=== PATIENT | male | born 1955 | race African-American/Black ===

== ENCOUNTER 2019-10-26 20:22 | Inpatient (IN) ==
[2019-10-26 20:50] LABS: Basophils % 0.4 % (0.0-0.8); Eosinophils # 0.1 10*3/uL (0.0-0.87); Hematocrit 36.6 VOL% (42.0-52.0); Hemoglobin 11.9 GM/DL (14.0-18.0); Immature Granulocytes % 0.9 %; Immature Granulocytes Absolute 0.09 #; Lymphocytes % 19.5 % (21.2-54.2); Mean Corpuscular HGB Conc 32.5 GM/DL (32-36); Mean Corpuscular Volume 98.4 FL (87-102); Mean Platelet Volume 9.6 FL (9.6-12.0); Monocytes % 8.1 % (1.7-12.7); NRBC # 0.03 10*3/uL; Neutrophils % 70.1 % (38.7-73.9); Platelet Count 303 T/CUMM (130-400); Red Blood Count 3.72 MC/CUMM (3.8-5.5); Red Cell Distribution Width 13.1 % (9.3-17.3); White Blood Count 10.3 T/CUMM (4-12)
[2019-10-26 21:10] LABS: Alanine Aminotransferase < 9 U/L (16-61); Albumin 2.9 G/DL (3.4-5.0); Alkaline Phosphatase 85 U/L (45-117); Aspartate Amino Transferase 21 U/L (0-37); Blood Urea Nitrogen 17 MG/DL (7-18); Calcium 8.4 MG/DL (8.5-10.1); Estimated Glom Filtration Rate 92 ML/MIN; Glucose 148 MG/DL (74-106); Osmolality,Calculated 270.4 MOS/KG (273-304); Total Protein 8.1 G/DL (6.4-8.3)
[2019-10-26] MEDS ORDERED: KETOROLAC 30 MG/1 ML VIAL IV STA (21:35)
[2019-10-26] MEDS ORDERED: KETOROLAC 30 MG/1 ML VIAL ONE (21:35)
[2019-10-26] MEDS ORDERED: MORPHINE 4 MG/1 ML VIAL IV STA (21:41)
[2019-10-26] MEDS ORDERED: ONDANSETRON 4 MG/2 ML VIAL IV ONE (21:41)
[2019-10-26] MEDS ORDERED: CLINDAMYCIN INJ 600 MG in PREMIX 1 EACH IV STA (21:41)
[2019-10-26] MEDS ORDERED: SODIUM CHLORIDE 0.9% 1,000 ML IV STA (21:41)
[2019-10-26 21:50] LABS: Apearance,Urine CLEAR (Clear); Bilirubin,Urine Negative (Negative); Blood, Urine Negative (Negative); Glucose,Urine (UA) Negative (Negative); Hyaline Casts,Urine 4 /LPF (0-3); Ketones,Urine 20 mg/dL (Negative); Mucus,Urine Occasional /LPF (Occasional); Nitrite,Urine Negative (Negative); Protein,Urine 30 MG/DL; RBC,Urine 1 /HPF (0-4); Squamous Epithelial Cell,Urine Occasional /HPF (0-10); Urine Color Amber (Yellow); Urine Specific Gravity 1.021 (1.001-1.035); WBC,Urine 1 /HPF (0-6)
[2019-10-26] MEDS ORDERED: hydrALAZINE 20 MG/1 ML VIAL IV PRN (21:57)
[2019-10-26] MEDS ORDERED: DEXTROSE 50% 25 GM/50 ML VIAL IV PRN (21:57)
[2019-10-26] MEDS ORDERED: GLUCAGON 1 MG VIAL IM PRN (21:57)
[2019-10-26] MEDS ORDERED: NICOTINE 21 MG/24 HR PATCH TRANSDERM PRN (21:57)
[2019-10-26] MEDS: MORPHINE 4 MG/1 ML VIAL IV PRN (23:00)
[2019-10-27] MEDS: ONDANSETRON 4 MG/2 ML VIAL IV PRN ×4 (00:52→20:34)
[2019-10-27] MEDS: MORPHINE 4 MG/1 ML VIAL IV PRN ×4 (00:53→20:34)
[2019-10-27] MEDS: CLINDAMYCIN INJ 600 MG in PREMIX 1 EACH IV SCH ×3 (05:32→22:48)
[2019-10-27] MEDS: cefTRIAXone 2,000 MG in SYRINGE 1 EACH IV SCH (07:05)
[2019-10-27] MEDS ORDERED: METOPROLOL TARTRATE 25 MG TABLET PO SCH (11:30)
[2019-10-27] MEDS: carvediloL 3.125 MG TABLET PO SCH ×2 (12:31→20:33)
[2019-10-27] MEDS: ISOSORBIDE MONONITRATE 30 MG TABLET PO SCH (12:31)
[2019-10-27] MEDS ORDERED: NICOTINE 14 MG/24 HR PATCH TRANSDERM SCH (13:30)
[2019-10-27 14:00] LABS: Troponin I < 0.015 NG/ML (0.00-0.045)
[2019-10-27] MEDS: NICOTINE 21 MG/24 HR PATCH TRANSDERM SCH (14:16)
[2019-10-27] MEDS: ASPIRIN EC 325 MG TABLET PO SCH (14:16)
[2019-10-27] MEDS ORDERED: SKIN HEALING OINT (AQUAPHOR) 50 GM TUBE TOP PRN (16:35)
[2019-10-28] MEDS: MORPHINE 4 MG/1 ML VIAL IV PRN ×4 (04:59→22:18)
[2019-10-28 05:39] LABS: Basophils % 0.3 % (0.0-0.8); Eosinophils # 0.1 10*3/uL (0.0-0.87); Eosinophils % 1.3 % (0.00-10.9); Hematocrit 32.5 VOL% (42.0-52.0); Hemoglobin 10.4 GM/DL (14.0-18.0); Immature Granulocytes % 0.6 %; Immature Granulocytes Absolute 0.04 #; Lymphocytes # 1.4 10*3/uL (1.4-4.0); Lymphocytes % 20.4 % (21.2-54.2); Mean Platelet Volume 9.5 FL (9.6-12.0); Monocytes % 8.3 % (1.7-12.7); Neutrophils % 69.1 % (38.7-73.9); Platelet Count 254 T/CUMM (130-400); Red Blood Count 3.25 MC/CUMM (3.8-5.5); Red Cell Distribution Width 13.1 % (9.3-17.3)
[2019-10-28 05:56] LABS: Calcium 8.5 MG/DL (8.5-10.1); Osmolality,Calculated 263.5 MOS/KG (273-304)
[2019-10-28 05:59] LABS: Risk Ratio 3.53; VLDL CHOLESTEROL 20.8 MG/DL
[2019-10-28] MEDS: cefTRIAXone 2,000 MG in SYRINGE 1 EACH IV SCH (06:47)
[2019-10-28] MEDS: CLINDAMYCIN INJ 600 MG in PREMIX 1 EACH IV SCH ×3 (06:48→22:19)
[2019-10-28] MEDS: ACETAMINOPHEN 325 MG TABLET PO PRN ×2 (07:30→20:51)
[2019-10-28] MEDS: ASPIRIN EC 325 MG TABLET PO SCH (09:38)
[2019-10-28] MEDS: carvediloL 3.125 MG TABLET PO SCH ×2 (09:39→20:52)
[2019-10-28] MEDS: ISOSORBIDE MONONITRATE 30 MG TABLET PO SCH (09:40)
[2019-10-28] MEDS: ENOXAPARIN 40 MG/0.4 ML SYRINGE SUBCUT SCH (11:02)
[2019-10-28] MEDS ORDERED: REGADENOSON 0.4 MG/5 ML SYRINGE IV ONE (12:16)
[2019-10-28] MEDS: NICOTINE 21 MG/24 HR PATCH TRANSDERM SCH (13:49)
[2019-10-28] MEDS: ROSUVASTATIN 20 MG TABLET PO SCH (20:51)
[2019-10-29] MEDS: MORPHINE 4 MG/1 ML VIAL IV PRN ×3 (06:22→16:02)
[2019-10-29] MEDS: cefTRIAXone 2,000 MG in SYRINGE 1 EACH IV SCH (06:24)
[2019-10-29] MEDS: CLINDAMYCIN INJ 600 MG in PREMIX 1 EACH IV SCH ×3 (06:31→22:15)
[2019-10-29] MEDS: carvediloL 3.125 MG TABLET PO SCH ×2 (09:19→22:18)
[2019-10-29] MEDS: ISOSORBIDE MONONITRATE 30 MG TABLET PO SCH (09:19)
[2019-10-29] MEDS: ASPIRIN EC 325 MG TABLET PO SCH (09:31)
[2019-10-29] MEDS: NICOTINE 21 MG/24 HR PATCH TRANSDERM SCH (09:31)
[2019-10-29] MEDS ORDERED: LIDOCAINE 1% 5 ML VIAL ONE (11:08)
[2019-10-29] MEDS ORDERED: TISSUE ADHESIVE 1 EACH APPLICATOR TOP ONE (11:08)
[2019-10-29] MEDS ORDERED: HEPARIN 5,000 UNIT/1 ML VIAL ONE (11:08)
[2019-10-29] MEDS ORDERED: VANCOMYCIN 500 MG VIAL ONE (11:08)
[2019-10-29] MEDS ORDERED: LACTATED RINGERS 1,000 ML IV SCH (11:30)
[2019-10-29] MEDS ORDERED: ONDANSETRON 4 MG/2 ML VIAL ONE ×2 (15:03→15:05)
[2019-10-29] MEDS ORDERED: HYDROmorphone 2 MG/1 ML VIAL ONE (15:03)
[2019-10-29] MEDS ORDERED: LIDOCAINE 2% 5 ML VIAL ONE (15:04)
[2019-10-29] MEDS ORDERED: fentaNYL 100 MCG/2 ML VIAL ONE (15:04)
[2019-10-29] MEDS ORDERED: MIDAZOLAM 2 MG/2 ML VIAL ONE (15:04)
[2019-10-29] MEDS ORDERED: SEVOFLURANE 1 UNIT/15 MINUTE INH ONE (15:04)
[2019-10-29] MEDS ORDERED: propofoL 200 MG/20 ML VIAL IV ONE (15:04)
[2019-10-29] MEDS ORDERED: DEXAMETHASONE 4 MG/1 ML VIAL ONE (15:04)
[2019-10-29] MEDS ORDERED: ROCURONIUM 100 MG/10 ML VIAL IV ONE (15:05)
[2019-10-29] MEDS ORDERED: PHENYLEPHRINE 1 MG/10 ML SYRINGE IV ONE (15:05)
[2019-10-29] MEDS ORDERED: GLYCOPYRROLATE 0.4 MG/2 ML VIAL ONE (15:05)
[2019-10-29] MEDS ORDERED: NEOSTIGMINE 10 MG/10 ML VIAL ONE (15:05)
[2019-10-29] MEDS ORDERED: LACTATED RINGERS 1,000 ML IV ONE (15:05)
[2019-10-29] MEDS: HYDROmorphone 2 MG/1 ML VIAL IV PRN ×2 (15:06→15:16)
[2019-10-29] MEDS ORDERED: ONDANSETRON 4 MG/2 ML VIAL IV PRN (15:12)
[2019-10-29] MEDS: oxyCODONE/ACETAMINOPHEN 5-325 MG TABLET PO PRN (22:18)
[2019-10-29] MEDS: ROSUVASTATIN 20 MG TABLET PO SCH (22:18)
[2019-10-30] MEDS: oxyCODONE/ACETAMINOPHEN 5-325 MG TABLET PO PRN ×4 (04:47→21:47)
[2019-10-30] MEDS: CLINDAMYCIN INJ 600 MG in PREMIX 1 EACH IV SCH ×3 (05:00→21:43)
[2019-10-30 05:36] LABS: Basophils % 0.2 % (0.0-0.8); Eosinophils % 0.2 % (0.00-10.9); Hematocrit 28.9 VOL% (42.0-52.0); Immature Granulocytes % 0.6 %; Immature Granulocytes Absolute 0.06 #; Lymphocytes % 20.7 % (21.2-54.2); Mean Corpuscular HGB Conc 31.1 GM/DL (32-36); Mean Corpuscular Volume 100.7 FL (87-102); Mean Platelet Volume 9.6 FL (9.6-12.0); Monocytes % 8.5 % (1.7-12.7); Neutrophils % 69.8 % (38.7-73.9); Platelet Count 285 T/CUMM (130-400); Red Blood Count 2.87 MC/CUMM (3.8-5.5); White Blood Count 9.8 T/CUMM (4-12)
[2019-10-30 05:47] LABS: Calcium 8.3 MG/DL (8.5-10.1); Osmolality,Calculated 274.8 MOS/KG (273-304)
[2019-10-30] MEDS: cefTRIAXone 2,000 MG in SYRINGE 1 EACH IV SCH (05:59)
[2019-10-30] MEDS: carvediloL 3.125 MG TABLET PO SCH ×2 (09:33→20:23)
[2019-10-30] MEDS: ISOSORBIDE MONONITRATE 30 MG TABLET PO SCH (09:33)
[2019-10-30] MEDS: ASPIRIN EC 325 MG TABLET PO SCH (09:33)
[2019-10-30] MEDS: NICOTINE 21 MG/24 HR PATCH TRANSDERM SCH (09:59)
[2019-10-30 15:47] LABS: Troponin I < 0.015 NG/ML (0.00-0.045)
[2019-10-30] MEDS: ACETAMINOPHEN 325 MG TABLET PO PRN (18:25)
[2019-10-30] MEDS: ROSUVASTATIN 20 MG TABLET PO SCH (20:23)
[2019-10-31] MEDS: CLINDAMYCIN INJ 600 MG in PREMIX 1 EACH IV SCH (05:49)
[2019-10-31] MEDS: oxyCODONE/ACETAMINOPHEN 5-325 MG TABLET PO PRN (05:55)
[2019-10-31] MEDS: cefTRIAXone 2,000 MG in SYRINGE 1 EACH IV SCH (06:30)
[2019-10-31] MEDS: carvediloL 3.125 MG TABLET PO SCH (09:21)
[2019-10-31] MEDS: NICOTINE 21 MG/24 HR PATCH TRANSDERM SCH (09:21)
[2019-10-31] MEDS: ISOSORBIDE MONONITRATE 30 MG TABLET PO SCH (09:21)
[2019-10-31] MEDS: ASPIRIN EC 325 MG TABLET PO SCH (09:21)
[2019-10-31] MEDS: ENOXAPARIN 40 MG/0.4 ML SYRINGE SUBCUT SCH (11:12)
[2019-10-31 11:58] VITALS: BP 120/54
== END 2019-10-31 12:35 | disposition home health service (06) | DRG 253 ==
LOC: N.ED 20:22 → N.EDINP 20:22 → N.3E 10-27 00:02
PROVIDERS: ADMIT Hospitalist; ATTEND Hospitalist